=== PATIENT | female | born 1955 | race Caucasian/White ===

== ENCOUNTER 2017-12-04 22:37 | Emergency (ER) | payer BC ==
[2017-12-05] MEDS ORDERED: ONDANSETRON HCL INJ/PF 4 MG/2 ML SDV IV ONE (01:35)
[2017-12-05] MEDS ORDERED: NORMAL SALINE 1000 ML 1,000 ML IV ONE (01:35)
[2017-12-05] MEDS ORDERED: KETOROLAC TROMETHAMINE INJ/PF 30 MG/1 ML SDV IV ONE (01:35)
--- NOTE | 2017-12-05 01:38 | ER Document Report ---
ED General - General Chief Complaint: Back Pain Stated Complaint: RIGHT SIDED BACK PAIN,CHEST PAIN,NAUSEA Time Seen by Provider: 12/05/17 01:31 TRAVEL OUTSIDE OF THE [place] IN LAST 30 DAYS: No - HPI Patient complains to provider of: Back pain, chest pain, nausea Onset: Yesterday Onset/Duration: Gradual Quality of pain: Achy Severity: Moderate Pain Level: 3 Associated symptoms: Body/muscle aches, Chest pain, Chills, Nausea Exacerbated by: Denies Relieved by: Denies Similar symptoms previously: No Recently seen / treated by doctor: No Notes: Patient is a 62-year-old female presenting to the emergency room today complaining of 2-day history of back pain with generalized weakness, chills, shortness of breath, left-sided chest pain, nausea, symptoms started sometime yesterday evening and worsen throughout the day today, she denies any vomiting or diarrhea, denies any dysuria or hematuria - Related Data Allergies/Adverse Reactions: No Known Allergies Allergy (Unverified 02/11/13 00:37) Past Medical History - General Information source: Patient - Social History Smoking Status: Unknown if Ever Smoked Family History: CAD, Hyperlipidemia, Hypertension - Past Medical History Cardiac Medical History: Reports: Hx Hypercholesterolemia, Hx Hypertension Neurological Medical History: Reports: Hx Migraine Endocrine Medical History: Reports: Hx Hypothyroidism - Immunizations Hx Diphtheria, Pertussis, Tetanus Vaccination: Yes Review of Systems - Review of Systems Constitutional: See HPI EENT: No symptoms reported Cardiovascular: See HPI Respiratory: See HPI Gastrointestinal: See HPI Genitourinary: See HPI Female Genitourinary: No symptoms reported Musculoskeletal: See HPI Skin: No symptoms reported Hematologic/Lymphatic: No symptoms reported Neurological/Psychological: No symptoms reported -: Yes All other systems reviewed and negative Physical Exam - Vital signs Vitals: Temp Pulse Resp BP Pulse Ox 98.3 F 83 16 114/83 96 12/04/17 23:29 12/04/17 23:29 12/04/17 23:29 12/04/17 23:29 12/04/17 23:29 Interpretation: Normal - General General appearance: Appears well, Alert - HEENT Head: Normocephalic, Atraumatic Eyes: Normal Pupils: PERRL - Respiratory Respiratory status: No respiratory distress Chest status: Tender - Tender to palpate in left anterior chest wall Breath sounds: Normal Chest palpation: Normal - Cardiovascular Rhythm: Regular Heart sounds: Normal auscultation Murmur: No - Abdominal Inspection: Normal Distension: No distension Bowel sounds: Normal Tenderness: Tender - Epigastric Organomegaly: No organomegaly - Back Back: Normal, Tender - Tender to palpate in bilateral lower thoracic paraspinal musculature - Extremities General upper extremity: Normal inspection, Nontender, Normal color, Normal ROM , Normal temperature General lower extremity: Normal inspection, Nontender, Normal color, Normal ROM , Normal temperature, Normal weight bearing. No: Oswaldo's sign - Neurological Neuro grossly intact: Yes Cognition: Normal Orientation: AAOx4 [place] Coma Scale Eye Opening: Spontaneous [place] Coma Scale Verbal: Oriented [place] Coma Scale Motor: Obeys Commands [place] Coma Scale Total: 15 Speech: Normal Motor strength normal: LUE, RUE, LLE, RLE Sensory: Normal - Psychological Associated symptoms: Normal affect, Normal mood - Skin Skin Temperature: Warm Skin Moisture: Dry Skin Color: Normal Course - Re-evaluation Re-evalutation: 12/05/17 03:11 Patient resting comfortably, lab and imaging findings discussed at bedside which are unremarkable, she has tenderness to palpate in the left anterior chest wall and in the lower thoracic region, symptoms consistent with musculoskeletal pain she will be discharged with anti-inflammatory medication and instructions for follow-up, advised to return if symptoms worsen, patient acknowledges understanding and agreement with this plan - Vital Signs Vital signs: Temp Pulse Resp BP Pulse Ox 98.3 F 83 16 114/83 96 12/04/17 23:29 12/04/17 23:29 12/04/17 23:29 12/04/17 23:29 12/04/17 23:29 - Laboratory Result Diagrams: 12/05/17 01:50 12/05/17 01:50 Laboratory results interpreted by me: 12/04/17 12/05/17 22:51 01:50 Chloride 108 H Ur Leukocyte Esterase TRACE H - Diagnostic Test Radiology reviewed: Image reviewed, Reports reviewed Discharge - Discharge Clinical Impression: Chest wall pain Back pain Qualifiers: Back pain location: thoracic back pain Chronicity: acute Back pain laterality: bilateral Qualified Code(s): M54.6 - Pain in thoracic spine Condition: Stable Disposition: HOME, SELF-CARE Instructions: Anti-Inflammatory Medication ([facility]), Chest Wall Pain ([facility]), Muscle Strain ([facility]), Ice Packs ([facility]), Oral Narcotic Medication ([facility]), Warm Packs ([facility]) Additional Instructions: Follow up with your primary care provider in one to 2 days. Return to the emergency room immediately if symptoms worsen or any additional concerns. Prescriptions: Hydrocodone/Acetaminophen [Hydrocodon-Acetaminophen 5-325] 1 each PO Q6 #7 tablet Forms: Return to Work
[2017-12-05 02:02] LABS: ABSOLUTE BASOPHILS # (AUTO) 0.1 10^3/uL (0.0-0.2); ABSOLUTE EOSINOPHILS # (AUTO) 0.1 10^3/uL (0.0-0.6); ABSOLUTE LYMPHOCYTES (AUTO) 1.4 10^3/uL (0.5-4.7); ABSOLUTE MONOCYTES (AUTO) 1.1 10^3/uL (0.1-1.4); ABSOLUTE NEUT (AUTO) 7.7 10^3/uL (1.7-8.2); BASOPHILS % (AUTO) 0.7 % (0-2); EOSINOPHILS % (AUTO) 1.2 % (0-6); HEMATOCRIT 39.7 % (36.0-47.0); HEMOGLOBIN 13.8 g/dL (12.0-15.5); LYMPHOCYTES % (AUTO) 13.2 % (13-45); MEAN CORPUSCULAR HEMOGLOBIN 33.4 pg (27.0-33.4); MEAN CORPUSCULAR HGB CONC 34.6 g/dL (32.0-36.0); MEAN CORPUSCULAR VOLUME 97 fl (80-97); MONOCYTES % (AUTO) 10.6 % (3-13); PLATELET COUNT 263 10^3/uL (150-450); RED BLOOD COUNT 4.12 10^6/uL (3.72-5.28); SEGMENTED NEUTROPHILS % (AUTO) 74.3 % (42-78); TOTAL CELLS COUNTED % (AUTO) 100 %; WHITE BLOOD COUNT 10.4 10^3/uL (4.0-10.5)
[2017-12-05 02:16] LABS: ALANINE AMINOTRANSFERASE 18 U/L (9-52); ALBUMIN 4.3 g/dL (3.5-5.0); ALKALINE PHOSPHATASE 62 U/L (38-126); ANION GAP 7 (5-19); ASPARTATE AMINO TRANSFERASE 21 U/L (14-36); BILIRUBIN,DIRECT 0.1 mg/dL (0.0-0.4); BILIRUBIN,TOTAL 0.7 mg/dL (0.2-1.3); BLOOD UREA NITROGEN 10 mg/dL (7-20); CALCIUM 9.5 mg/dL (8.4-10.2); CARBON DIOXIDE 27 mmol/L (22-30); CHLORIDE 108 mmol/L (98-107); GLUCOSE 97 mg/dL (75-110); LIPASE 100.9 U/L (23-300); POTASSIUM 4.2 mmol/L (3.6-5.0); SODIUM 142.3 mmol/L (137-145); TOTAL PROTEIN 6.9 g/dL (6.3-8.2)
[2017-12-05 02:37] LABS: APPEARANCE,URINE CLEAR; BILIRUBIN,URINE NEGATIVE (NEGATIVE); COLOR,URINE COLORLESS; GLUCOSE, URINE NEGATIVE (NEGATIVE); KETONES,URINE NEGATIVE (NEGATIVE); LEUKOCYTE ESTERASE,URINE TRACE (NEGATIVE); NITRITE,URINE NEGATIVE (NEGATIVE); PROTEIN,URINE NEGATIVE (NEGATIVE); URINE SPECIFIC GRAVITY 1.004; UROBILINOGEN,URINE NEGATIVE mg/dL (<2.0)
--- NOTE | 2017-12-05 02:49 | RADIOLOGY REPORT (SQ) ---
EXAM DESCRIPTION: XR CHEST 2 VIEWS COMPLETED DATE/TME: 12/05/2017 01:35 CLINICAL HISTORY: SOB COMPARISON: None. FINDINGS: Frontal and lateral views of the chest. The cardiomediastinal silhouette has normal size and contour. No consolidation, pneumothorax, or pleural effusion. No displaced rib fractures identified. Upper abdominal soft tissues are unremarkable. IMPRESSION: 1. No acute pulmonary process identified.
[2017-12-05] MEDS ORDERED: OXYCODONE-ACETAMINOPHEN 5-325 MG TABLET PO ONE (03:11)
[2017-12-05 03:24] VITALS: BP 109/66
--- NOTE | 2017-12-05 08:09 | EKG REPORT ---
SEVERITY:- ABNORMAL ECG - SINUS RHYTHM LEFT ATRIAL ABNORMALITY BORDERLINE T ABNORMALITIES, DIFFUSE LEADS : Confirmed by: Kai Patton MD 05-Dec-2017 08:08:56
== END 2017-12-05 03:52 | disposition home or self-care (01) ==
LOC: ER 22:37
DX: M54.6 Pain in thoracic spine (principal); R07.89 Other chest pain; R10.816 Epigastric abdominal tenderness; M79.10 Myalgia, unspecified site; R11.0 Nausea; R53.1 Weakness; R68.83 Chills (without fever); R06.02 Shortness of breath; I10 Essential (primary) hypertension
CPT/HCPCS: 93005; 99285; 96361; 96374; 96375; 36415; 83690; 85025; 80053; 81001; 84484; 71046; 93010; J1885; J2405; J7030

== ENCOUNTER 2019-09-03 16:58 | Emergency (ER) | payer BC ==
[2019-09-03] MEDS ORDERED: ASPIRIN 81 MG TABLET, CHEWABLE PO ONE (17:16)
--- NOTE | 2019-09-03 17:19 | ER Document Report ---
ED Medical Screen (RME) - General Chief Complaint: Chest Pain Stated Complaint: CHEST PAIN, LEFT ARM PAIN Time Seen by Provider: 09/03/19 17:16 Mode of Arrival: Ambulatory Information source: Patient Notes: 64-year-old female presented to ED for complaint of chest pain off and on for the last 2 to 3 days. She states she has been sick for months but her heart has been throbbing in her chest for the last 2 to 3 days. She states that it started going down her left arm and now is going across her back and down her right arm. She is alert oriented respirations regular nonlabored speaking in full sentences. She states she has been sick for this month and she does not know why she has been sick for months she has been to her doctor and did not get any answer. She does have thyroid problems and does take medications for that. She does smoke a pack a day but denies drinking or use of any illicit drugs. I have greeted and performed a rapid initial assessment of this patient. A comprehensive ED assessment and evaluation of the patient, analysis of test results and completion of medical decision making process will be conducted by an additional ED providers. TRAVEL OUTSIDE OF THE [place] IN LAST 30 DAYS: No - Related Data Allergies/Adverse Reactions: No Known Allergies Allergy (Unverified 02/11/13 00:37) Past Medical History - Past Medical History Cardiac Medical History: Reports: Hx Hypercholesterolemia, Hx Hypertension Neurological Medical History: Reports: Hx Migraine Endocrine Medical History: Reports: Hx Hypothyroidism Renal/ Medical History: Denies: Hx Peritoneal Dialysis - Immunizations Hx Diphtheria, Pertussis, Tetanus Vaccination: Yes Physical Exam - Vital signs Vitals: Temp Pulse Resp BP Pulse Ox 97.6 F 69 14 135/113 H 98 09/03/19 17:14 09/03/19 17:14 09/03/19 17:14 09/03/19 17:14 09/03/19 17:14 Course - Vital Signs Vital signs: Temp Pulse Resp BP Pulse Ox 97.6 F 69 14 135/113 H 98 09/03/19 17:14 09/03/19 17:14 09/03/19 17:14 09/03/19 17:14 09/03/19 17:14
--- NOTE | 2019-09-03 17:44 | RADIOLOGY REPORT (SQ) ---
EXAM DESCRIPTION: CHEST 2 VIEWS IMAGES COMPLETED DATE/TIME: 09/03/2019 5:33 pm REASON FOR STUDY: Chest pain COMPARISON: 12/05/2017 EXAM PARAMETERS: NUMBER OF VIEWS: two views TECHNIQUE: Digital Frontal and Lateral radiographic views of the chest acquired. RADIATION DOSE: NA LIMITATIONS: none FINDINGS: LUNGS AND PLEURA: The lungs are hyperexpanded. There is no infiltrate, effusion, or mass. MEDIASTINUM AND HILAR STRUCTURES: No masses or contour abnormalities. HEART AND VASCULAR STRUCTURES: Heart normal size. No evidence for failure. BONES: No acute findings. HARDWARE: None in the chest. OTHER: No other significant finding. IMPRESSION: Chronic lung changes with no acute cardiopulmonary findings. TECHNICAL DOCUMENTATION: JOB ID: [id number] 2010 [employer]- All Rights Reserved Reading location - IP/workstation name: [email or web address]
[2019-09-03 17:52] LABS: ABSOLUTE EOSINOPHILS # (AUTO) 0.2 10^3/uL (0.0-0.6); ABSOLUTE LYMPHOCYTES (AUTO) 1.7 10^3/uL (0.5-4.7); ABSOLUTE MONOCYTES (AUTO) 0.9 10^3/uL (0.1-1.4); ABSOLUTE NEUT (AUTO) 4.4 10^3/uL (1.7-8.2); BASOPHILS % (AUTO) 0.5 % (0-2); EOSINOPHILS % (AUTO) 2.8 % (0-6); HEMATOCRIT 41.1 % (36.0-47.0); LYMPHOCYTES % (AUTO) 24.1 % (13-45); MEAN CORPUSCULAR HEMOGLOBIN 32.9 pg (27.0-33.4); MEAN CORPUSCULAR VOLUME 97 fl (80-97); PLATELET COUNT 300 10^3/uL (150-450); RED BLOOD COUNT 4.25 10^6/uL (3.72-5.28); RED CELL DISTRIBUTION WIDTH 12.9 % (11.5-14.0); SEGMENTED NEUTROPHILS % (AUTO) 60.6 % (42-78); TOTAL CELLS COUNTED % (AUTO) 100 %; WHITE BLOOD COUNT 7.2 10^3/uL (4.0-10.5)
[2019-09-03 18:05] LABS: APPEARANCE,URINE CLEAR; BILIRUBIN,URINE NEGATIVE (NEGATIVE); COLOR,URINE YELLOW; GLUCOSE, URINE NEGATIVE (NEGATIVE); KETONES,URINE NEGATIVE (NEGATIVE); LEUKOCYTE ESTERASE,URINE NEGATIVE (NEGATIVE); NITRITE,URINE NEGATIVE (NEGATIVE); PROTEIN,URINE NEGATIVE (NEGATIVE); URINE SPECIFIC GRAVITY 1.006; UROBILINOGEN,URINE NEGATIVE mg/dL (<2.0)
[2019-09-03 18:29] LABS: URINE AMPHETAMINES SCREEN NEGATIVE; URINE BARBITURATES SCREEN NEGATIVE; URINE BENZODIAZEPINES SCREEN NEGATIVE; URINE COCAINE SCREEN NEGATIVE; URINE MARIJUANA (THC) SCREEN NEGATIVE; URINE METHADONE SCREEN NEGATIVE; URINE PHENCYCLIDINE SCREEN NEGATIVE
[2019-09-03 18:59] LABS: ALBUMIN 4.4 g/dL (3.5-5.0); ALKALINE PHOSPHATASE 58 U/L (38-126); ANION GAP 5 (5-19); ASPARTATE AMINO TRANSFERASE 23 U/L (14-36); BILIRUBIN,TOTAL 0.2 mg/dL (0.2-1.3); BLOOD UREA NITROGEN 11 mg/dL (7-20); CALCIUM 9.4 mg/dL (8.4-10.2); CARBON DIOXIDE 28 mmol/L (22-30); CHLORIDE 106 mmol/L (98-107); CREATINE KINASE 68 U/L (30-135); GLUCOSE 88 mg/dL (75-110); POTASSIUM 4.6 mmol/L (3.6-5.0); TOTAL PROTEIN 6.6 g/dL (6.3-8.2)
[2019-09-03 19:11] LABS: FREE T3 3.57 pg/mL (2.77-5.27); FREE T4 (FREE THYROXINE) 1.33 ng/dL (0.78-2.19)
[2019-09-03 19:25] LABS: THYROID STIMULATING HORMONE 1.48 uIU/mL (0.47-4.68)
--- NOTE | 2019-09-03 20:02 | ER Document Report ---
ED General - General Chief Complaint: Chest Pain Stated Complaint: CHEST PAIN, LEFT ARM PAIN Time Seen by Provider: 09/03/19 17:16 Primary Care Provider: NGUYỄN CAMPOS MD [Primary Care Provider] - Follow up as needed Mode of Arrival: Ambulatory Information source: Patient Notes: 09/03/19 17:23 - ED [facility] [id number] : 1955 Patient Age: 64 patient complains of intermittent chest pain x2-3 days. patient states it radiates to both arms and her back and feels like her heart is pounding. jimbo note 64-year-old female presented to ED for complaint of chest pain off and on for the last 2 to 3 days. She states she has been sick for months but her heart has been throbbing in her chest for the last 2 to 3 days. She states that it started going down her left arm and now is going across her back and down her right arm. She is alert oriented respirations regular nonlabored speaking in full sentences. She states she has been sick for this month and she does not know why she has been sick for months she has been to her doctor and did not get any answer. She does have thyroid problems and does take medications for that. She does smoke a pack a day but denies drinking or use of any illicit drugs. my notes 64-year-old female arrives by POV with chief complaint of bilateral arm pain and bilateral dorsal neck pain for 1 week. Patient works at [employer] in [place] next he saw Dr. Joan Wood at [place] in [place]. She reports she is feeling extra week and feverish and was told she needs to see a cultural anthropology professor and [facility]. Advised her she can see Dr. Pelletier here in [place] if she prefers. Her labs today and EKG and chest x-ray are all within normal limits as well as a TSH and CPK and troponin. TRAVEL OUTSIDE OF THE [place] IN LAST 30 DAYS: No - HPI Onset: Last week Onset/Duration: Sudden, Persistent, Worse Quality of pain: Achy Severity: Mild Pain Level: 1 Associated symptoms: Weakness Exacerbated by: Movement Relieved by: Denies Similar symptoms previously: No Recently seen / treated by doctor: No - Related Data Allergies/Adverse Reactions: No Known Allergies Allergy (Unverified 02/11/13 00:37) Home Medications: flexeril, levothyroxine, bupropion Past Medical History - General Information source: Patient - Social History Smoking Status: Current Every Day Smoker Cigarette use (# per day): Yes - 1/3 ppd Chew tobacco use (# tins/day): No Smoking Education Provided: Yes Frequency of alcohol use: None Drug Abuse: None Family History: CAD, Hyperlipidemia, Hypertension Patient has suicidal ideation: No Patient has homicidal ideation: No - Past Medical History Cardiac Medical History: Reports: Hx Hypercholesterolemia, Hx Hypertension Neurological Medical History: Reports: Hx Migraine Endocrine Medical History: Reports: Hx Hypothyroidism Renal/ Medical History: Denies: Hx Peritoneal Dialysis - Immunizations Hx Diphtheria, Pertussis, Tetanus Vaccination: Yes Review of Systems - Review of Systems Constitutional: See HPI, Weakness EENT: No symptoms reported Cardiovascular: No symptoms reported Respiratory: No symptoms reported Gastrointestinal: No symptoms reported Genitourinary: No symptoms reported Female Genitourinary: No symptoms reported Musculoskeletal: No symptoms reported Skin: No symptoms reported Hematologic/Lymphatic: No symptoms reported Neurological/Psychological: No symptoms reported Physical Exam - Vital signs Vitals: Temp Pulse Resp BP Pulse Ox 97.6 F 69 14 135/113 H 98 09/03/19 17:14 09/03/19 17:14 09/03/19 17:14 09/03/19 17:14 09/03/19 17:14 Interpretation: Normal - General General appearance: Appears well - HEENT Head: Normocephalic, Atraumatic Eyes: Normal Pupils: PERRL Pharynx: Normal Neck: Normal - Respiratory Respiratory status: No respiratory distress Chest status: Nontender Breath sounds: Normal Chest palpation: Normal - Cardiovascular Rhythm: Regular Heart sounds: Normal auscultation Murmur: No - Abdominal Inspection: Normal Distension: No distension Bowel sounds: Normal Tenderness: Nontender Organomegaly: No organomegaly - Rectal Hemorrhoids: Other - deferred - Genitourinary [place] exam: Other - deferred - Back Back: Normal - Extremities General upper extremity: Normal inspection, Nontender, Normal color, Normal ROM, Normal temperature General lower extremity: Normal inspection, Nontender, Normal color, Normal ROM, Normal temperature, Normal weight bearing. No: Oswaldo's sign - Neurological Neuro grossly intact: Yes Cognition: Normal Orientation: AAOx4 [place] Coma Scale Eye Opening: Spontaneous [place] Coma Scale Verbal: Oriented [place] Coma Scale Motor: Obeys Commands [place] Coma Scale Total: 15 Speech: Normal Motor strength normal: LUE, RUE, LLE, RLE Sensory: Normal - Psychological Associated symptoms: Normal affect - Skin Skin Temperature: Warm Skin Moisture: Dry Course - Vital Signs Vital signs: Temp Pulse Resp BP Pulse Ox 97.6 F 69 18 113/78 98 09/03/19 17:21 09/03/19 17:14 09/03/19 19:03 09/03/19 19:03 09/03/19 19:03 - Laboratory Result Diagrams: 09/03/19 17:15 09/03/19 17:15 - Diagnostic Test Radiology reviewed: Reports reviewed - EKG Interpretation by Me EKG shows normal: Sinus rhythm Discharge - Discharge Clinical Impression: Myalgia Clinical Impression: (Ruled Out): Epidemic myalgia Condition: Good Disposition: HOME, SELF-CARE Additional Instructions: Follow-up with personal doctor return to ER as needed take medicines as directed encourage fluids; call Dr. Pelletier tomorrow here in [place] for appointment. Prescriptions: Amitriptyline HCl [Elavil 25 mg Tablet] 25 mg PO QHS #10 tablet Forms: Return to Work Referrals: NGUYỄN CAMPOS MD [Primary Care Provider] - Follow up as needed
[2019-09-03 21:26] VITALS: BP 123/85
--- NOTE | 2019-09-04 13:25 | EKG REPORT ---
SEVERITY:- NORMAL ECG - SINUS RHYTHM : Confirmed by: Vamshi Pelletier MD 04-Sep-2019 13:24:36
== END 2019-09-03 21:26 | disposition home or self-care (01) ==
LOC: ER 16:58
DX: M79.10 Myalgia, unspecified site (principal); R53.1 Weakness; R07.9 Chest pain, unspecified; F17.210 Nicotine dependence, cigarettes, uncomplicated; E78.00 Pure hypercholesterolemia, unspecified; I10 Essential (primary) hypertension
CPT/HCPCS: 36415; 71046; 80053; 80307; 81001; 82550; 83735; 84439; 84443; 84481; 84484; 85025; 87086; 93005; 93010; 99285

== ENCOUNTER 2019-11-30 13:03 | Emergency (ER) | payer BC ==
--- NOTE | 2019-11-30 14:36 | ER Document Report ---
ED General - General Chief Complaint: Pain All Over Stated Complaint: SHORTNESS OF BREATH/HEADACHE Primary Care Provider: NGUYỄN CAMPOS MD [Primary Care Provider] - Follow up as needed Notes: Patient is a 64-year-old white female with a history of COPD and hypothyroidism who presents the emergency department the chief complaint of shortness of breath. The patient states she is been battling this for quite a long time. She seen her primary doctor been placed on inhalers but states she does not like them. She states her quality of life is declining because she cannot breathe well most of the time. She states specifically not being able to enjoy her grandchildren due to the decreased breathing. She states on Sunday she went to [place] with her and suffered a migraine in route. She states after the migraine she feels like the shortness of breath got worse. She states that she is been having issues to a worse degree since Sunday. Denies any cough, fever or chest pain. No rashes. No known sick contacts. TRAVEL OUTSIDE OF THE [place] IN LAST 30 DAYS: No - Related Data Allergies/Adverse Reactions: No Known Allergies Allergy (Verified 11/30/19 13:28) Past Medical History - Social History Smoking Status: Former Smoker Family History: CAD, Hyperlipidemia, Hypertension Patient has homicidal ideation: No - Past Medical History Cardiac Medical History: Reports: Hx Hypercholesterolemia, Hx Hypertension Neurological Medical History: Reports: Hx Migraine Endocrine Medical History: Reports: Hx Hypothyroidism Renal/ Medical History: Denies: Hx Peritoneal Dialysis - Immunizations Hx Diphtheria, Pertussis, Tetanus Vaccination: Yes Review of Systems - Review of Systems Constitutional: denies: Fever EENT: denies: Nose discharge Cardiovascular: denies: Syncope Respiratory: Short of breath Gastrointestinal: denies: Constipation Genitourinary: denies: Hematuria Female Genitourinary: denies: Vaginal discharge Musculoskeletal: denies: Muscle stiffness Skin: denies: Dryness Hematologic/Lymphatic: denies: Blood clots Neurological/Psychological: denies: Loss of power Physical Exam - Vital signs Vitals: Temp Pulse Resp BP Pulse Ox 98.2 F 90 18 134/84 H 97 11/30/19 13:28 11/30/19 13:28 11/30/19 13:28 11/30/19 13:28 11/30/19 13:28 - General General appearance: Appears well, Alert In distress: None - HEENT Head: Normocephalic, Atraumatic Eyes: Normal Conjunctiva: Normal Mucous membranes: Moist Pharynx: Normal Neck: Supple - Respiratory Respiratory status: No respiratory distress Chest status: Nontender Breath sounds: Normal Chest palpation: Normal - Cardiovascular Rhythm: Regular Heart sounds: Normal auscultation - Extremities General upper extremity: Normal inspection, Nontender, Normal color, Normal ROM, Normal temperature General lower extremity: Normal inspection, Nontender, Normal color, Normal ROM, Normal temperature, Normal weight bearing. No: Oswaldo's sign - Neurological Neuro grossly intact: Yes Cognition: Normal Orientation: AAOx4 - Psychological Associated symptoms: Normal affect, Normal mood - Skin Skin Temperature: Warm Skin Moisture: Dry Skin Color: Normal Course - Re-evaluation Re-evalutation: 11/30/19 14:57 EK. Sinus rhythm at 68 bpm. Normal axis. Normal intervals. No STEMI. Some evidence of left atrial enlargement. Largely unchanged from prior dated 09/03/2019. Interpreted by myself in conjunction with ED attending. 11/30/19 14:58 11/30/19 15:49 CBC showing a slight elevation of the white count with a left shift. Remainder laboratory studies unremarkable. Chest x-ray negative for any acute findings per radiologist. History and physical consistent with bronchitis and exacerbation of her COPD. She is also requesting a refill of her Synthroid. W ill provide a course of steroids, albuterol inhaler and refill her levothyroxine. Counseled her at length regarding the importance of outpatient follow-up and advised that she return here or any ER immediately with any new, persistent or worsening symptoms. She is currently pending COVID-19 testing results at this time and we requested she quarantine until the results returned negative and if they return positive she will be contacted notified and given further details regarding next steps. She verbalized understood and agreed. - Vital Signs Vital signs: Temp Pulse Resp BP Pulse Ox 98.2 F 90 18 134/84 H 97 11/30/19 13:28 11/30/19 13:28 11/30/19 13:28 11/30/19 13:28 11/30/19 13:28 - Laboratory Result Diagrams: 11/30/19 14:50 11/30/19 14:50 Laboratory results interpreted by me: 11/30/19 14:50 WBC 11.3 H Lymph % (Auto) 6.8 L Absolute Neuts (auto) 9.7 H Seg Neutrophils % 85.6 H Discharge - Discharge Clinical Impression: Bronchitis, COPD exacerbation, Medication refill Condition: Stable Disposition: HOME, SELF-CARE Instructions: COVID-19 Guidance for Persons Under Investigation, Chronic Obstructive Lung Disease ([facility]) Additional Instructions: You are now considered a patient under investigation for COVID-19. Please isolating quarantine in your home until you are given a negative result. Please take your medicines as prescribed. Please follow-up with your regular doctor in a few days for reevaluation. Please return here or any ER immediately with any new, persistent or worsening symptoms. Prescriptions: Prednisone [Deltasone 20 mg Tablet] 40 mg PO DAILY #10 tablet Levothyroxine Sodium 88 mcg PO DAILY #30 tablet Albuterol Sulfate [Proair Respiclick] 90 mcg IH Q4 PRN #1 [email or web address] PRN Reason: Referrals: NGUYỄN CAMPOS MD [Primary Care Provider] - Follow up as needed
[2019-11-30 15:03] LABS: ABSOLUTE LYMPHOCYTES (AUTO) 0.8 10^3/uL (0.5-4.7); ABSOLUTE MONOCYTES (AUTO) 0.8 10^3/uL (0.1-1.4); ABSOLUTE NEUT (AUTO) 9.7 10^3/uL (1.7-8.2); BASOPHILS % (AUTO) 0.3 % (0-2); EOSINOPHILS % (AUTO) 0.1 % (0-6); HEMATOCRIT 40.1 % (36.0-47.0); HEMOGLOBIN 13.7 g/dL (12.0-15.5); LYMPHOCYTES % (AUTO) 6.8 % (13-45); MEAN CORPUSCULAR HEMOGLOBIN 32.7 pg (27.0-33.4); MEAN CORPUSCULAR HGB CONC 34.3 g/dL (32.0-36.0); MEAN CORPUSCULAR VOLUME 95 fl (80-97); MONOCYTES % (AUTO) 7.2 % (3-13); PLATELET COUNT 381 10^3/uL (150-450); RED BLOOD COUNT 4.21 10^6/uL (3.72-5.28); RED CELL DISTRIBUTION WIDTH 12.5 % (11.5-14.0); SEGMENTED NEUTROPHILS % (AUTO) 85.6 % (42-78); TOTAL CELLS COUNTED % (AUTO) 100 %; WHITE BLOOD COUNT 11.3 10^3/uL (4.0-10.5)
[2019-11-30 15:16] LABS: INTERNATIONAL RATION (INR) 0.89; PROTHROMBIN TIME 12.3 SEC (11.4-15.4)
[2019-11-30 15:17] LABS: PARTIAL THROMBOPLASTIN TIME 28.4 SEC (23.5-35.8)
[2019-11-30 15:22] LABS: ALBUMIN 4.6 g/dL (3.5-5.0); ALKALINE PHOSPHATASE 83 U/L (38-126); ANION GAP 10 (5-19); ASPARTATE AMINO TRANSFERASE 26 U/L (14-36); BILIRUBIN,DIRECT 0.3 mg/dL (0.0-0.4); BILIRUBIN,TOTAL 0.4 mg/dL (0.2-1.3); BLOOD UREA NITROGEN 13 mg/dL (7-20); CALCIUM 10.1 mg/dL (8.4-10.2); CARBON DIOXIDE 27 mmol/L (22-30); CHLORIDE 102 mmol/L (98-107); CREATINE KINASE 51 U/L (30-135); GLUCOSE 104 mg/dL (75-110); POTASSIUM 4.6 mmol/L (3.6-5.0); TOTAL PROTEIN 7.5 g/dL (6.3-8.2)
--- NOTE | 2019-11-30 15:28 | RADIOLOGY REPORT (SQ) ---
EXAM DESCRIPTION: CHEST SINGLE VIEW IMAGES COMPLETED DATE/TIME: 11/30/2019 2:43 pm REASON FOR STUDY: SOB COMPARISON: 09/03/2019 TECHNIQUE: Single frontal radiographic view of the chest acquired. NUMBER OF VIEWS: One view. LIMITATIONS: None. FINDINGS: LUNGS AND PLEURA: No pneumothorax. Minimal basilar subsegmental atelectasis. No consolid ation or significant pleural effusion. MEDIASTINUM AND HILAR STRUCTURES: Stable. HEART AND VASCULAR STRUCTURES: Stable. BONES: No acute findings. HARDWARE: None in the chest. OTHER: No other significant finding. IMPRESSION: Minimal basilar subsegmental atelectasis. No consolidation or significant pleural effus ion. TECHNICAL DOCUMENTATION: JOB ID: [id number] 2010 [employer]- All Rights Reserved Reading location - IP/workstation name: [email or web address]
[2019-11-30 15:34] LABS: NT PRO BNP 113 pg/mL (<125); TROPONIN I < 0.012 ng/mL
[2019-11-30 16:13] VITALS: BP 148/81
--- NOTE | 2019-11-30 23:12 | EKG REPORT ---
SEVERITY:- ABNORMAL ECG - SINUS RHYTHM LEFT ATRIAL ABNORMALITY : Confirmed by: Mireya Walter MD 30-Nov-2019 23:12:23
== END 2019-11-30 16:19 | disposition home or self-care (01) ==
LOC: ER 13:03
DX: J44.1 Chronic obstructive pulmonary disease with (acute) exacerbation (principal); J40 Bronchitis, not specified as acute or chronic; E03.9 Hypothyroidism, unspecified; Z76.0 Encounter for issue of repeat prescription; I11.9 Hypertensive heart disease without heart failure; Z87.891 Personal history of nicotine dependence; Z20.828 Contact with and (suspected) exposure to other viral communicable diseases
CPT/HCPCS: 93005; 99285; 36415; 82550; 85025; 85610; 85730; 80053; 84484; 83880; 71045; 93010; U0003; C9803; 87635